=== PATIENT | female | born 1975 ===

== ENCOUNTER 2016-12-03 10:07 | Day surgery (SDC) | payer OTHER ==
[2016-12-03 10:55] VITALS: RESP 18
[2016-12-03 10:57] VITALS: BMI 42.8
[2016-12-03] MEDS ORDERED: Midazolam 2 MG/2 ML VIAL ONE (11:52)
[2016-12-03] MEDS ORDERED: Rocuronium 10 mg/ml (5 ml) ONE (11:52)
[2016-12-03] MEDS ORDERED: Lidocaine 4% (Laryng-O-Jet) Kit MM ONE (11:52)
[2016-12-03] MEDS ORDERED: Succinylcholine 200 mg/10 ml Inj IV ONE (11:52)
[2016-12-03] MEDS ORDERED: Propofol 10 mg/ml Inj (20 ML) ONE (11:52)
[2016-12-03] MEDS ORDERED: ePHEDrine 50 mg/ml Inj ONE (11:56)
[2016-12-03] MEDS ORDERED: Lactated Ringer's 1,000 ML IV ONE ×2 (12:20→14:40)
[2016-12-03] MEDS ORDERED: Dexamethasone 4 mg/1 ml ONE (12:44)
[2016-12-03] MEDS ORDERED: Neostigmine Methylsulfate 3mg/3ml Syringe IV ONE (13:12)
[2016-12-03] MEDS: HYDROmorphone 0.5 mg/0.5 ml ISec IVP PRN ×2 (13:45→14:00)
[2016-12-03] MEDS ORDERED: Lactated Ringer's 1,000 ML IV SCH (13:45)
[2016-12-03] MEDS ORDERED: Oxycodone/Acetaminophen 5/325 mg Tab PO PRN (13:55)
[2016-12-03] MEDS ORDERED: Albuterol 0.083% Inhal Sol (2.5 mg/3 mL) UD ONE (14:54)
[2016-12-03] MEDS ORDERED: Albuterol 0.083% Inhal Sol (2.5 mg/3 mL) UD INH ONE ×3 (15:01→15:45)
[2016-12-03 16:23] VITALS: O2SAT 97
[2016-12-03] MEDS ORDERED: Oxycodone/Acetaminophen 5/325 mg Tab PO ONE (17:00)
[2016-12-03 17:20] VITALS: BP 115/76; PULSE 68; TEMP 97.5
--- NOTE | 2016-12-05 12:38 | OP ---
PROCEDURE DATE: 12/03/2016 PREOPERATIVE DIAGNOSIS: Multiparity. POSTOPERATIVE DIAGNOSIS: Multiparity. SURGEON: Arias Jacobson MD AIRBRUSH PAINTER: Dr. Herrera. ANESTHESIA: General anesthesia. PROCEDURE: Bilateral tubal ligation by cautery and laparoscope. FINDINGS: Tubes, ovaries and uterus within normal limits. ESTIMATED BLOOD LOSS: Minimal. DESCRIPTION OF PROCEDURE: With the patient in the dorsal lithotomy position under general anesthesia , the patient was prepped and draped in the usual sterile manner. A weighted speculum was placed in the posterior vagina. The bladder was drained with a straight cath after which the anterior lip of t he cervix was grasped and the cervix was dilated and the HUMI uterine manipulator put into place. We then moved to the abdomen where the abdomen was tented, and a Veress needle introduced inflating the abdomen to about 4 liters of CO2. Following this, a small incision was made below the umbilicus abo ut 1 cm. A #10 trocar blunt was introduced into the abdominopelvic cavity, and after that was done, the laparoscope with the camera attached was then introduced into the pelvic cavity visualizing the a james findings. A 2nd puncture was made in the midline just 2-3 cm below the pubic bone. A #5 trocar was used. After this was done, the tubes, ovaries and uterus were visualized, and the tubes were ca uterized extensively bilaterally, maintaining hemostasis. After this was done, the liver was visuali zed and found to be grossly normal. The CO2 was then removed from the abdominopelvic cavity. Instru ments were removed from the cavity. The incision was closed with 2-0 Vicryl and Monocryl. Also Derm abond was used. The instruments were then removed from the vagina and from the uterus. The patient tolerated the procedure well and was in satisfactory condition on the way to recovery room. The bloo d loss was minimal. Arias Jacobson MD cc: 22 TT: 12/05/2016 12:38:04 nv
== END 2016-12-03 18:34 | disposition home or self-care (01) ==
LOC: H.OPSURG 10:07
PROVIDERS: ATTEND Specialist
DX: Z64.1 Problems related to multiparity (principal); J45.909 Unspecified asthma, uncomplicated; E66.01 Morbid (severe) obesity due to excess calories

== ENCOUNTER 2017-01-16 09:57 | Emergency (ER) | payer OTHER ==
[2017-01-16 10:02] VITALS: BP 130/74; PULSE 89; RESP 16; TEMP 98.4; O2SAT 98
[2017-01-16 10:03] VITALS: BMI 43.5
--- NOTE | 2017-01-16 10:56 | ED PDOC ---
HPI: Eye Injury/Pain Time Seen by Provider: 01/16/17 10:54 Chief Complaint (Nursing): Eye Problem Chief Complaint (Provider): eye discharge History Per: Patient (41 y/o female awoke with left eye swelling and discharge with "eye shut" this morning. Notes itching in bilateral eyes. Denies any cough/uri/etc. Has ill child at home with uri. Denies any scratchy throat/ nasal discharge but has h/o allergies. No contact lens.) Past Medical History Reviewed: Historical Data, Nursing Documentation, Vital Signs Vital Signs: Last Vital Signs Temp 98.4 F 01/16/17 10:01 Pulse 89 01/16/17 10:01 Resp 16 01/16/17 10:01 BP 130/74 01/16/17 10:01 Pulse Ox 98 01/16/17 10:01 - Medical History PMH: Anxiety, Asthma Denies: Chronic Kidney Disease - Family History Family History: States: No Known Family Hx - Immunization History Hx Tetanus Toxoid Vaccination: No Hx Influenza Vaccination: No Hx Pneumococcal Vaccination: No - Home Medications Home Medications: Ambulatory Orders Medication Instructions Recorded Albuterol Sulfate [Proventil Hfa] 6.7 gm IH PRN PRN 12/03/16 [place]-3 Fatty Acids/Fish Oil [Fish 3 each PO DAILY 12/03/16 Oil 1,000 mg Softgel] oxyCODONE/Acetaminophen [Percocet 1 tab PO Q6 PRN 12/03/16 5/325 mg Tab] Olopatadine 0.1% Opht [Patanol 5 1 drop BOTHEYES BID #1 bottle 01/16/17 Ml] - Allergies Allergies/Adverse Reactions: Allergies Allergy/AdvReac Type Severity Reaction Status Date / Time aspirin Allergy RASH Verified 01/16/17 10:03 ciprofloxacin [From Cipro] Allergy RASH Verified 01/16/17 10:03 ciprofloxacin HCl Allergy RASH Verified 01/16/17 10:03 [From Cipro] erythromycin base Allergy RASH Verified 01/16/17 10:03 fluconazole [From Diflucan] Allergy RASH Verified 01/16/17 10:03 peanut Allergy SWELLING Verified 01/16/17 10:03 Penicillins Allergy RASH Verified 01/16/17 10:03 sulfamethoxazole Allergy RASH Verified 01/16/17 10:03 [From Bactrim] trimethoprim [From Bactrim] Allergy RASH Verified 01/16/17 10:03 robitussin dm Allergy SHORTNESS Uncoded 11/28/15 09:11 OF BREATH seafood Allergy SHORTNESS Uncoded 11/28/15 09:11 OF BREATH Review of Systems ROS Statement: Except As Marked, All Systems Reviewed And Found Negative Eyes: Positive for: Eyelid Inflammation Physical Exam - Reviewed Nursing Documentation Reviewed: Yes Vital Signs Reviewed: Yes - Physical Exam Appears: Positive for: Well, Non-toxic, No Acute Distress Head Exam: Positive for: ATRAUMATIC, NORMAL INSPECTION, NORMOCEPHALIC Skin: Positive for: Normal Color, Warm, DRY Eye Exam: Positive for: EOMI, PERRL, Conjunctival injection (conjunctival injection left eye. No fluorescein uptake noted. PERRL). Negative for: Normal appearance ENT: Positive for: Normal ENT Inspection Neck: Positive for: Normal, Painless ROM Cardiovascular/Chest: Positive for: Regular Rate, Rhythm Respiratory: Positive for: CNT, Normal Breath Sounds Gastrointestinal/Abdominal: Positive for: Normal Exam, Bowel Sounds, Soft Back: Positive for: Normal Inspection Extremity: Positive for: Normal ROM Neurologic/Psych: Positive for: Alert, Oriented - ECG O2 Sat by Pulse Oximetry: 98 - Progress ED Course And Treament: Patient has extensive allergy to antibiotics. Will give patanol for allergic component. Cold compresses and artificial tear. Will f/u with opthalmology for evaluation. Disposition - Clinical Impression Clinical Impression: Conjunctivitis - Patient ED Disposition Is Patient to be Admitted: No - Disposition Referrals: Tiburcio Hughes MD [Staff Provider] - Disposition: Routine/Home Disposition Time: 10:56 Condition: FAIR Prescriptions: Olopatadine 0.1% Opht [Patanol 5 Ml] 1 drop BOTHEYES BID #1 bottle Instructions: Conjunctivitis (ED) Forms: [facility] ED School/Work Excuse
== END 2017-01-16 11:22 | disposition home or self-care (01) ==
LOC: H.ER 09:57
DX: H10.9 Unspecified conjunctivitis (principal); F41.9 Anxiety disorder, unspecified; J45.909 Unspecified asthma, uncomplicated; Z88.0 Allergy status to penicillin

== ENCOUNTER 2017-05-25 12:32 | Emergency (ER) | payer OTHER ==
[2017-05-25 12:32] VITALS: BMI 43.5
[2017-05-25 12:45] VITALS: BP 135/88; PULSE 86; RESP 16; TEMP 99.2; O2SAT 100
--- NOTE | 2017-05-25 13:20 | ED PDOC ---
HPI: General Adult Time Seen by Provider: 05/25/17 13:06 Chief Complaint (Nursing): Dizziness/Lightheaded History Per: Patient History/Exam Limitations: no limitations Onset/Duration Of Symptoms: Days, Intermittent Episodes Current Symptoms Are (Timing): Still Present Additional Complaint(s): 41 year old female presents to ED with complaints of left ear clogged sensation and feeling lightheaded for few days. Patient states she diagnosed with otitis externa 05/17/17 and given Rx for neomycin+polymyxin+hydrocortisone which she has been using. For the past 2 days patient reports feeling unbalanced and left ear clogged. She has many allergies and cannot take OTC decongestants. Denies fever or headache. Past Medical History Reviewed: Historical Data, Nursing Documentation, Vital Signs Vital Signs: Last Vital Signs Temp 99.2 F 05/25/17 12:40 Pulse 86 05/25/17 12:40 Resp 16 05/25/17 12:40 BP 135/88 05/25/17 12:40 Pulse Ox 100 05/25/17 14:14 - Medical History PMH: Anxiety, Asthma - Surgical History Surgical History: - Family History Family History: States: Unknown Family Hx - Social History Drugs: Denies - Immunization History Hx Tetanus Toxoid Vaccination: No Hx Influenza Vaccination: No Hx Pneumococcal Vaccination: No - Home Medications Home Medications: Ambulatory Orders Medication Instructions Recorded Albuterol Sulfate [Proventil Hfa] 6.7 gm IH PRN PRN 12/03/16 [place]-3 Fatty Acids/Fish Oil [Fish 3 each PO DAILY 12/03/16 Oil 1,000 mg Softgel] oxyCODONE/Acetaminophen [Percocet 1 tab PO Q6 PRN 12/03/16 5/325 mg Tab] Olopatadine 0.1% Opht [Patanol 5 1 drop BOTHEYES BID #1 bottle 01/16/17 Ml] Meclizine [Meclizine*] 25 mg PO Q8 PRN #30 tab 05/25/17 - Allergies Allergies/Adverse Reactions: Allergies Allergy/AdvReac Type Severity Reaction Status Date / Time aspirin Allergy RASH Verified 05/25/17 12:40 ciprofloxacin [From Cipro] Allergy RASH Verified 05/25/17 12:40 ciprofloxacin HCl Allergy RASH Verified 05/25/17 12:40 [From Cipro] erythromycin base Allergy RASH Verified 05/25/17 12:40 fluconazole [From Diflucan] Allergy RASH Verified 05/25/17 12:40 peanut Allergy SWELLING Verified 05/25/17 12:40 Penicillins Allergy RASH Verified 05/25/17 12:40 sulfamethoxazole Allergy RASH Verified 05/25/17 12:40 [From Bactrim] trimethoprim [From Bactrim] Allergy RASH Verified 05/25/17 12:40 robitussin dm Allergy SHORTNESS Uncoded 05/25/17 12:40 OF BREATH seafood Allergy SHORTNESS Uncoded 05/25/17 12:40 OF BREATH Review of Systems Constitutional: Negative for: Fever, Weakness Eyes: Negative for: Vision Change ENT: Positive for: Ear Pain. Negative for: Throat Pain Cardiovascular: Negative for: Chest Pain, Palpitations Respiratory: Negative for: Cough, Shortness of Breath Gastrointestinal: Negative for: Abdominal Pain Skin: Negative for: Rash Neurological: Positive for: Dizziness. Negative for: Weakness, Numbness, Headache Physical Exam - Reviewed Nursing Documentation Reviewed: Yes Vital Signs Reviewed: Yes - Physical Exam Appears: Positive for: Non-toxic, No Acute Distress Head Exam: Positive for: ATRAUMATIC, NORMAL INSPECTION, NORMOCEPHALIC Skin: Positive for: Warm, Dry. Negative for: Diaphoresis, Pallor, Rash Eye Exam: Positive for: Normal appearance, EOMI, PERRL ENT: Positive for: Pharynx Is (pink), Hearing Is (normal), Other (left ear with exudates, no canal edema, no erythema, TM intact) Neck: Positive for: Normal, Painless ROM Cardiovascular/Chest: Positive for: Regular Rate, Rhythm, Chest Non Tender. Negative for: Murmur Respiratory: Positive for: Normal Breath Sounds. Negative for: Wheezing, Respiratory Distress Extremity: Positive for: Normal ROM. Negative for: Tenderness, Deformity, Swelling Neurologic/Psych: Positive for: Alert, spring inspector II-XII (intact), Oriented, Mood/ Affect (normal), Gait (steady). Negative for: Facial Droop - ECG O2 Sat by Pulse Oximetry: 100 Medical Decision Making Medical Decision Making: Patient c.o lightheaded and ear fullness. Exam shows left ear with few exudates. No TM erythema. Patient has multiple allergies. Will give Meclizine for dizziness and antihistamine effect. 1410 Patient reevaluated and reports feeling better, no longer feeling dizzy. She feels comfortable going home. recommend follow up with ENT. Disposition - Clinical Impression Clinical Impression: Dizziness, Otitis externa - Patient ED Disposition Is Patient to be Admitted: No Counseled Patient/Family Regarding: Diagnosis, Need For Followup, Rx Given - Disposition Referrals: Lalit Bergeron MD [Staff Provider] - Disposition: Routine/Home Disposition Time: 14:12 Condition: STABLE Additional Instructions: Your prescription was sent to [facility]. Take Meclizine every 8 hours as needed for dizziness. Continue with ear drops and follow up with ENT for further evaluation. Prescriptions: Meclizine [Meclizine*] 25 mg PO Q8 PRN #30 tab PRN Reason: Dizziness Instructions: Vertigo (ED) Forms: [facility] (Swazi) - POA Present On Arrival: None
== END 2017-05-25 14:24 | disposition home or self-care (01) ==
LOC: H.ER 12:32
DX: R42 Dizziness and giddiness (principal); F41.9 Anxiety disorder, unspecified; Z88.0 Allergy status to penicillin

== ENCOUNTER 2017-09-13 17:27 | Observation (INO) | payer OTHER ==
[2017-09-13 17:27] VITALS: BMI 43.5
[2017-09-13] MEDS ORDERED: Lactated Ringer's 1,000 ML IV STA (17:42)
[2017-09-13] MEDS ORDERED: Albuterol-Ipratrop 3 mg / 0.5 (3 ml) UD INH STA (17:43)
[2017-09-13] MEDS ORDERED: Dextrose 5%/Lactated Ringer's 1,000 ML IV SCH (17:45)
[2017-09-13] MEDS ORDERED: Albuterol-Ipratrop 3 mg / 0.5 (3 ml) UD ONE (17:50)
--- NOTE | 2017-09-13 18:12 | ED PDOC ---
Syncope/Near Syncope/Dizziness Time Seen by Provider: 09/13/17 17:30 Chief Complaint (Nursing): Syncope Chief Complaint (Provider): Syncope History Per: Patient, Family (daughter) History/Exam Limitations: no limitations Onset/Duration Of Symptoms: Hrs Additional Complaint(s): Patient is a 41 y/o female with a past medical history of asthma presenting to the emergency department for a syncopal episode just prior to arrival. Per daughter, patient was seen getting up and walking and then falling down and passing out. Reports that the syncopal episode lasted seven seconds and denies observing convulsions, postictal activity, urinary incontinence, or tongue biting. Per patient, notes feeling weakness, body aches, leg cramps, and two episodes of non-bilious, non-bloody vomiting. Further notes that she is also experiencing flu like symptoms ongoing for five days that include rhinorrhea, cough, sore throat, malaise, fatigue, and a fever of 102 degrees at home. She started a leftover pack of azithromycin. Also reports using albuterol and ibuprofen with no significant relief. Denies diarrhea or other complaints. PCP: Dr. Kandis Erickson. Past Medical History Reviewed: Historical Data, Nursing Documentation, Vital Signs - Medical History PMH: Anxiety, Asthma Denies: Chronic Kidney Disease - Surgical History Surgical History: Other surgeries: tubal ligation and ankle surgery - Family History Family History: States: Hypertension - Social History Current smoker - smoking cessation education provided: No Ex-Smoker (has not smoked in the last 12 months): No - Immunization History Hx Tetanus Toxoid Vaccination: No Hx Influenza Vaccination: No Hx Pneumococcal Vaccination: No - Home Medications Home Medications: Ambulatory Orders Medication Instructions Recorded Albuterol Sulfate [Proventil Hfa] 6.7 gm IH PRN PRN 12/03/16 [place]-3 Fatty Acids/Fish Oil [Fish 3 each PO DAILY 12/03/16 Oil 1,000 mg Softgel] oxyCODONE/Acetaminophen [Percocet 1 tab PO Q6 PRN 12/03/16 5/325 mg Tab] Olopatadine 0.1% Opht [Patanol 5 1 drop BOTHEYES BID #1 bottle 01/16/17 Ml] Meclizine [Meclizine*] 25 mg PO Q8 PRN #30 tab 05/25/17 Albuterol 0.083% [Albuterol 3 ml IH Q4H PRN #50 neb 09/13/17 Sulfate 3 Ml] Ondansetron ODT [Zofran ODT] 1 odt PO Q6 PRN #30 odt 09/13/17 predniSONE [Prednisone] 60 mg PO DAILY #4 dose 09/13/17 - Allergies Allergies/Adverse Reactions: Allergies Allergy/AdvReac Type Severity Reaction Status Date / Time aspirin Allergy RASH Verified 05/25/17 12:40 ciprofloxacin [From Cipro] Allergy RASH Verified 05/25/17 12:40 ciprofloxacin HCl Allergy RASH Verified 05/25/17 12:40 [From Cipro] erythromycin base Allergy RASH Verified 05/25/17 12:40 fluconazole [From Diflucan] Allergy RASH Verified 05/25/17 12:40 peanut Allergy SWELLING Verified 05/25/17 12:40 Penicillins Allergy RASH Verified 05/25/17 12:40 sulfamethoxazole Allergy RASH Verified 05/25/17 12:40 [From Bactrim] trimethoprim [From Bactrim] Allergy RASH Verified 05/25/17 12:40 robitussin dm Allergy SHORTNESS Uncoded 05/25/17 12:40 OF BREATH seafood Allergy SHORTNESS Uncoded 05/25/17 12:40 OF BREATH Review of Systems ROS Statement: Except As Marked, All Systems Reviewed And Found Negative Constitutional: Positive for: Fever, Weakness, Malaise, Other (body aches) ENT: Positive for: Nose Discharge (rhinorrhea), Throat Pain Respiratory: Positive for: Cough Gastrointestinal: Positive for: Vomiting (non-bilious, non-bloody) Musculoskeletal: Positive for: Other (leg cramps) Neurological: Positive for: Other (syncope) Physical Exam - Reviewed Nursing Documentation Reviewed: Yes Vital Signs Reviewed: Yes - Physical Exam Appears: Positive for: In Acute Distress (tired and ill appearing) Skin: Positive for: Warm, Dry Eye Exam: Positive for: EOMI, PERRL ENT: Positive for: Pharynx Is (dry mucus membranes), Nasal Congestion. Negative for: Pharyngeal Erythema, Tonsillar Exudate, Tonsillar Swelling Neck: Positive for: Painless ROM, Supple Cardiovascular/Chest: Positive for: Regular Rate, Rhythm, Chest Non Tender. Negative for: Murmur Respiratory: Positive for: Decreased Breath Sounds, Respiratory Distress Gastrointestinal/Abdominal: Positive for: Soft. Negative for: Tenderness Back: Positive for: Normal Inspection. Negative for: Decreased ROM Extremity: Positive for: Normal ROM. Negative for: Deformity Lymphatic: Negative for: Adenopathy Neurologic/Psych: Positive for: Alert, research nurse II-XII (intact), Oriented (x3). Negative for: Motor/Sensory Deficits - Laboratory Results Result Diagrams: 09/13/17 18:16 09/13/17 18:16 - ECG ECG: Positive for: Interpreted By Me ECG Rhythm: Positive for: Normal QRS, Normal ST Segment, Sinus Rhythm (87) - Radiology X-Ray: Interpreted by Ne X-Ray Interpretation: No Acute Disease Medical Decision Making Medical Decision Making: Time: 17:41 Initial Impression: syncope and flu-like symptoms Differential diagnoses include but are not limited to pneumonia, influenza, dehydration, electrolyte abnormality, arrhythmia, and sepsis Initial Plan: EKG ED Urine Dipstick ED Urine Chest XR Acetaminophen 975 mg PO Albuterol 9 mL INH Dextrose 1 L IV Lactated Ringers 1 L IV MethylPrednisolone 125 mg IVP Blood Culture Kiss Mixer IV Insertion Glucose, Blood, POC assessment Peak flow assessment before and after treatment Reevaluation 1999 Patient is feeling slightly better. Reexamination pt clinically continues to appear somewhat ill. Labs demonstrate leukopenia consistent with viral illness. Udip demonstrates ketones. Pt to be hospitalized for syncope, dehydration, and viral illness. Scribe Attestation: Documented by Hali Hunter, acting as a scribe for Tiffany Ch MD. Provider Scribe Attestation: All medical record entries made by the Scribe were at my direction and personally dictated by me. I have reviewed the chart and agree that the record accurately reflects my personal performance of the history, physical exam, medical decision making, and the department course for this patient. I have also personally directed, reviewed, and agree with the discharge instructions and disposition. Disposition - Clinical Impression Clinical Impression: Influenza-like illness, Syncope, Dehydration Discussed With DrMarce: Lisa Toro Counseled Patient/Family Regarding: Studies Performed, Diagnosis - Disposition Disposition Time: 20:00 Condition: FAIR Prescriptions: Albuterol 0.083% [Albuterol Sulfate 3 Ml] 3 ml IH Q4H PRN #50 neb PRN Reason: ASTHMA Ondansetron ODT [Zofran ODT] 1 odt PO Q6 PRN #30 odt PRN Reason: Nausea/Vomiting predniSONE [Prednisone] 60 mg PO DAILY #4 dose - Pt Status Changed To: Hospital Disposition Of: Observation - POA Present On Arrival: Falls Or Trauma
[2017-09-13 18:25] LABS: BASO % 1.3 % (0.0-2.0); EOS # 0.2 K/uL (0.0-0.7); EOS % 4.4 % (0.0-4.0); HEMATOCRIT 44.8 % (34.0-47.0); LYMPH # 1.6 K/uL (1.0-4.3); LYMPH % 42.6 % (20.0-40.0); MEAN CELL VOLUME 92.7 fl (81.0-99.0); MEAN CORPUSCULAR HEMOGLOBIN 30.7 pg (27.0-31.0); MEAN CORPUSCULAR HGB CONC 33.1 g/dL (33.0-37.0); MEAN PLATELET VOLUME 9.7 fl (7.2-11.7); MONO # 0.5 K/uL (0.0-0.8); NEUT # 1.4 K/uL (1.8-7.0); NEUT % 37.7 % (50.0-75.0); NRBC % 0.2 % (0.0-0.0); RED CELL DISTRIBUTION WIDTH 13.3 % (11.5-14.5); WHITE BLOOD COUNT 3.8 K/uL (4.8-10.8)
[2017-09-13 18:34] LABS: VENOUS BLOOD GAS BASE EXCESS 2.9 mmol/L (0.0-2.0); VENOUS BLOOD GAS PCO2 43 mmHg (40-60); VENOUS BLOOD PH 7.42 (7.32-7.43)
[2017-09-13 18:40] LABS: ALKALINE PHOSPHATASE 86 U/L (38-126); ALT/SGPT 110 U/L (9-52); AST/SGOT 85 U/L (14-36); BILIRUBIN,TOTAL 0.6 mg/dl (0.2-1.3); BLOOD UREA NITROGEN 13 mg/dl (7-17); CALCIUM 8.6 mg/dL (8.4-10.2); CARBON DIOXIDE 27 mmol/L (22-30); CHLORIDE 103 mmol/L (98-107); GFR AFRICAN-AMERICAN > 60; GLUCOSE,RANDOM 91 mg/dL (65-105); MAGNESIUM 1.8 MG/DL (1.6-2.3); PHOSPHOROUS 3.2 mg/dl (2.5-4.5); POTASSIUM 4.4 MMOL/L (3.6-5.0); SODIUM 137 mmol/l (132-148); TOTAL PROTEIN 7.7 G/DL (6.3-8.2)
--- NOTE | 2017-09-13 21:46 | CP.PCM.HP ---
History of Present Illness - History of Present Illness History of Present Illness: 41 yr old F presents to ED with complaint of dizziness s/p syncopal episode. PMHx includes Mild Persistent Asthma, Vertigo, Anxiety and chronic left knee pain. Patient reports her syncopal episode occurred when she was getting up from kneeling next to the toilet after 2 episodes of non-bilious, non-bloody vomiting. She had just eaten some soup and vomited shortly after. The syncopal episode was witnessed by her daughter who reports it lasted less than 10 seconds , there was no head trauma, no head/limb jerking, no postictal state or other symptoms, no urine or fecal incontinence. Patient reports she has had nasal congestion, dry cough, body aches, intermittent b/l calf cramps and epigastric burning with each cough for about 1 week. She had a fever of 102F on tuesday and tuesday which resolved with Motrin. There are many sick contacts at work, no sick contacts at home. Since Tuesday she has also used her Albuterol inhaler daily 2-4 times a day and took a Z-pack which she had at home. She also took some Claritin and she felt the medications helped. She came in because she felt dizzy after the syncopal episode. Denies SOB, weakness, chest pain, visual changes, numbness or tingling of extremities. PMD: Dr. Erickson LMP: 09/01/17 (regular every month) PMHx: Mild Persistent Asthma, Vertigo, Anxiety and chronic left knee pain SurgHx: x 1 with bilateral tubal ligation, DNC 08/2012, Ligament repair right ankle 2005 FMHx: mother has HTN and hx of endocarditis, maternal grandfather had DM and colon cancer, father medical hx unknown SocialHx: denies smoking or drugs, reports Etoh socially Medications: Proventil HFA 6.7gm INH PRN for SOB, Albuterol Sulfate 2.5mg/3mL 0.083% nebulized PRN TID for SOB, Meclizine 25mg PO Q8 PRN vertigo (no refills left) Allergies: ASA (rash), Ciprofloxacin (rash), Erythromycin (rash), Fluconazole ( rash), Peanuts (swelling), Penicillins (rash), Bactrim (rash), Robitussin (SOB) , Seafood (SOB) ED course: Vitals on arrival: BP 122/75 mmHg, Pulse 84, Temp 98.4F, Resp 18, O2 sat 99 on room air EKG: normal sinus rhythm, no ST-T changes CXR: no active disease Urine BHcg negative POC glucose 140 mg/dL CBC with diff: WBC 3.8, Neutrophils 37.7 %, Lymphocytes 42.6%, Monophils 14 %, Eosinophils 4.4 % VBG: pH 7.42, pO2 44, pCO2 43, HCO3 26.7, lactate 0.8 Influenza A/B neg/neg CMP: AST 85, ALT 110, rest wnl Blood culture and UA sent Cr phosphokinase 44 ED tx: Tylenol 975mg PO once, Duoneb 9mL once, Methylprednisolone 125 mg IVP once, Ondansetron 4mg IVP once, LR's 1000 mls/hr once Present on Admission - Present on Admission Any Indicators Present on Admission: No History of DVT/PE: No History of Uncontrolled Diabetes: No Urinary Catheter: No Decubitus Ulcer Present: No Review of Systems - Review of Systems All systems: reviewed and no additional remarkable complaints except (except for what is mentioned in HPI) - EENT Eyes: absent: Change in Vision Nose/Mouth/Throat: Nasal Congestion, Sore Throat - Cardiovascular Cardiovascular: Lightheadedness, Syncope (1 episode). absent: Chest Pain, Dyspnea on Exertion, Orthopnea, Palpitations - Respiratory Respiratory: Cough (dry), Pain with Coughing (epigastric burning). absent: Hemoptysis - Gastrointestinal Gastrointestinal: Nausea, Vomiting (2 episodes-nonbilious, nonbloody). absent: Change in Stool Character, Diarrhea, Dysphagia - Genitourinary Genitourinary: absent: Difficulty Urinating, Dysuria, Flank Pain, Hematuria - Reproductive: Female Reproductive:Female: Menses 1-7 Days, Normal Menses - Musculoskeletal Musculoskeletal: Muscle Cramps, Myalgias, Other (chronic left knee pain) - Integumentary Integumentary: absent: Bleeding Lesions, Change in Hair, Changing Lesions, Dry Skin, Rash - Neurological Neurological: Dizziness, Syncope. absent: Abnormal Speech, Numbness, Headaches , Weakness, Other Visual Disturbances - Psychiatric Psychiatric: Anxiety (controlled) Past Patient History - Past Medical History & Family History Past Medical History?: Yes - Past Social History Smoking Status: Never Smoked - CARDIAC Hx Cardiac Disorders: No - PULMONARY Hx Respiratory Disorders: Yes (asthma) - NEUROLOGICAL Hx Neurological Disorder: No - HEENT Hx HEENT Problems: No - RENAL Hx Chronic Kidney Disease: No - ENDOCRINE/METABOLIC Hx Endocrine Disorders: No - HEMATOLOGICAL/ONCOLOGICAL Hx Blood Disorders: No - INTEGUMENTARY Hx Dermatological Problems: Yes Other/Comment: JESUS ARAYAROME - MUSCULOSKELETAL/RHEUMATOLOGICAL Hx Musculoskeletal Disorders: Yes (R ankle surgery) - GASTROINTESTINAL Hx Gastrointestinal Disorders: No - GENITOURINARY/GYNECOLOGICAL Hx Genitourinary Disorders: No - PSYCHIATRIC Hx Anxiety: Yes - SURGICAL HISTORY Hx Surgeries: Yes Hx Section: Yes Hx Tubal Ligation: Yes Other/Comment: D&C;REPAIR OF RIGHT ANKLE LIGAMENT;-1;NATURAL DELIVERY - 2. Tubal ligation - ANESTHESIA Hx Anesthesia: Yes Hx Anesthesia Reactions: No Hx Malignant Hyperthermia: No Meds Allergies/Adverse Reactions: Allergies Allergy/AdvReac Type Severity Reaction Status Date / Time aspirin Allergy RASH Verified 05/25/17 12:40 ciprofloxacin [From Cipro] Allergy RASH Verified 05/25/17 12:40 ciprofloxacin HCl Allergy RASH Verified 05/25/17 12:40 [From Cipro] erythromycin base Allergy RASH Verified 05/25/17 12:40 fluconazole [From Diflucan] Allergy RASH Verified 05/25/17 12:40 peanut Allergy SWELLING Verified 05/25/17 12:40 Penicillins Allergy RASH Verified 05/25/17 12:40 sulfamethoxazole Allergy RASH Verified 05/25/17 12:40 [From Bactrim] trimethoprim [From Bactrim] Allergy RASH Verified 05/25/17 12:40 robitussin dm Allergy SHORTNESS Uncoded 05/25/17 12:40 OF BREATH seafood Allergy SHORTNESS Uncoded 05/25/17 12:40 OF BREATH Physical Exam - Constitutional Appears: No Acute Distress - Head Exam Head Exam: ATRAUMATIC, NORMOCEPHALIC - Eye Exam Eye Exam: EOMI, PERRL - ENT Exam ENT Exam: Mucous Membranes Moist - Neck Exam Neck exam: Positive for: Full Rom. Negative for: Lymphadenopathy - Respiratory Exam Respiratory Exam: Decreased Breath Sounds (in bilateral lower lobes), Clear to Auscultation Bilateral, Wheezes (mild expiratory), NORMAL BREATHING PATTERN. absent: Rales, Rhonchi, Respiratory Distress - Cardiovascular Exam Cardiovascular Exam: REGULAR RHYTHM, +S1, +S2 - GI/Abdominal Exam GI & Abdominal Exam: Normal Bowel Sounds, Soft (obese). absent: Guarding, Mass - Extremities Exam Extremities exam: Positive for: pedal pulses present. Negative for: calf tenderness, pedal edema - Back Exam Back exam: absent: CVA tenderness (L), CVA tenderness (R) - Neurological Exam Neurological exam: Alert, CN II-XII Intact, Oriented x3 - Psychiatric Exam Psychiatric exam: Normal Affect, Normal Mood - Skin Skin Exam: Dry, Intact, Normal Color, Warm Results - Vital Signs Recent Vital Signs: Last Vital Signs Temp 98.5 F 09/13/17 21:35 Pulse 85 09/13/17 21:35 Resp 14 09/13/17 21:35 BP 118/78 09/13/17 21:35 Pulse Ox 96 09/13/17 21:35 - Labs Result Diagrams: 09/13/17 18:16 09/13/17 18:16 Labs: Laboratory Results - last 24 hr 09/13/17 09/13/17 09/13/17 17:56 18:15 18:16 WBC 3.8 L D RBC 4.83 Hgb 14.8 Hct 44.8 MCV 92.7 MCH 30.7 MCHC 33.1 RDW 13.3 Plt Count 218 MPV 9.7 Neut % (Auto) 37.7 L Lymph % (Auto) 42.6 H Tate % (Auto) 14.0 H Eos % (Auto) 4.4 H Baso % (Auto) 1.3 Neut # 1.4 L Lymph # 1.6 Tate # 0.5 Eos # 0.2 Baso # 0.0 pO2 44 VBG pH 7.42 VBG pCO2 43 VBG HCO3 26.7 VBG Total CO2 29.2 H VBG O2 Sat (Calc) 85.3 H VBG Base Excess 2.9 H VBG Potassium 4.2 Sodium 136.0 Chloride 107.0 Glucose 98 Lactate 0.8 FiO2 21.0 Potassium Carbon Dioxide Anion Gap BUN Creatinine Est GFR ( Amer) Est GFR (Non-Af Amer) POC Glucose (mg/dL) 91 Random Glucose Calcium Phosphorus Magnesium Total Bilirubin AST ALT Alkaline Phosphatase Total Creatine Kinase Total Protein Albumin Globulin Albumin/Globulin Ratio Venous Blood Potassium 4.2 Influenza Typ A,B (EIA) 09/13/17 09/13/17 18:16 18:16 WBC RBC Hgb Hct MCV MCH MCHC RDW Plt Count MPV Neut % (Auto) Lymph % (Auto) Tate % (Auto) Eos % (Auto) Baso % (Auto) Neut # Lymph # Tate # Eos # Baso # pO2 VBG pH VBG pCO2 VBG HCO3 VBG Total CO2 VBG O2 Sat (Calc) VBG Base Excess VBG Potassium Sodium 137 Chloride 103 Glucose Lactate FiO2 Potassium 4.4 Carbon Dioxide 27 Anion Gap 11 BUN 13 Creatinine 0.6 L Est GFR ( Amer) > 60 Est GFR (Non-Af Amer) > 60 POC Glucose (mg/dL) Random Glucose 91 Calcium 8.6 Phosphorus 3.2 Magnesium 1.8 Total Bilirubin 0.6 AST 85 H ALT 110 H D Alkaline Phosphatase 86 Total Creatine Kinase 44 Total Protein 7.7 Albumin 4.0 Globulin 3.8 Albumin/Globulin Ratio 1.0 Venous Blood Potassium Influenza Typ A,B (EIA) Negative for flu a/b Assessment & Plan - Assessment and Plan (Free Text) Assessment: 41 yr old F admitted for syncope, dehydration and viral illness. PMHx includes Mild Persistent Asthma, Vertigo, Anxiety and chronic left knee pain. 1. 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 Mild Persistent Asthma -controlled, O2 sat 95-100% on room air -Albuterol 2.5mg/3ML Q4 PRN SOB -2L supplemental O2 via nasal cannula PRN for O2 sat < 92% -ED tx: Duoneb 9mL once, Methylprednisolone 125 mg IVP once 3. Upper respiratory Infection -stable, afebrile, normal vitals -IV fluids -NS at 100 mls/hr, NPO -Tessalon Perles 200mg PO TID PRN for cough 4. Elevated LFT's -CMP: AST 85, ALT 110 -no GI/abdominal discomfort -f/u as outpatient 5. DVT prophylaxis -SCD's -Lovenox 40mg SC daily - Date & Time Date: 09/13/17 Time: 21:00
[2017-09-13] MEDS: Sodium Chloride 0.9% 1,000 ML IV SCH (23:05)
[2017-09-13] MEDS: Albuterol 0.083% Inhal Sol (2.5 mg/3 mL) UD INH PRN (23:35)
[2017-09-14 07:51] LABS: RBC URINE 1 /hpf (0-3); URINE BILIRUBIN NEGATIVE (NEGATIVE); URINE BLOOD NEGATIVE (NEGATIVE); URINE COLOR YELLOW (YELLOW); URINE GLUCOSE (UA) NEG (Normal); URINE KETONE TRACE mg/dL (NEGATIVE); URINE LEUKOCYTE ESTERASE NEG Leu/uL (Negative); URINE PROTEIN NEGATIVE (NEGATIVE); URINE UROBILINOGEN 0.2-1.0 mg/dL (0.2-1.0); WBC URINE 1 /hpf (0-5)
[2017-09-14] MEDS: Albuterol 0.083% Inhal Sol (2.5 mg/3 mL) UD INH PRN (07:53)
[2017-09-14 08:14] VITALS: BP 110/75; RESP 20; TEMP 98.1; O2SAT 94
--- NOTE | 2017-09-14 08:21 | CARD ---
APPROVED REPORT EKG Measurement Heart [id number] <Conclusion> Normal sinus rhythm Normal ECG
[2017-09-14] MEDS ORDERED: Enoxaparin 40 mg Syringe SC SCH (09:00)
[2017-09-14] MEDS: Sodium Chloride 0.9% 1,000 ML IV SCH (09:19)
--- NOTE | 2017-09-14 09:37 | RAD ---
HISTORY: cough fever COMPARISON: 11/25/2011 chest x-ray -report not now available to me FINDINGS: LUNGS: No active pulmonary disease. PLEURA: No significant pleural effusion identified, no pneumothorax apparent. CARDIOVASCULAR: Normal. OSSEOUS STRUCTURES: No significant abnormalities. VISUALIZED UPPER ABDOMEN: Normal. OTHER FINDINGS: None. IMPRESSION: No active disease. No interval pathology noted
--- NOTE | 2017-09-14 11:23 | CP.PCM.DIS ---
<Kavita Johnsona - Last Filed: 09/14/17 11:45> Provider - Provider Date of Admission: 09/13/17 20:38 Attending physician: Cortney Farmer MD Primary care physician: Dr. Erickson Time Spent in preparation of Discharge (in minutes): 30 Diagnosis - Discharge Diagnosis (1) Dehydration Status: Resolved Hospital Course - Lab Results Lab Results: Most Recent Lab Values WBC 3.8 K/uL (4.8-10.8) L D 09/13/17 18:16 RBC 4.83 Mil/uL (3.80-5.20) 09/13/17 18:16 Hgb 14.8 g/dL (12.0-16.0) 09/13/17 18:16 Hct 44.8 % (34.0-47.0) 09/13/17 18:16 MCV 92.7 fl (81.0-99.0) 09/13/17 18:16 MCH 30.7 pg (27.0-31.0) 09/13/17 18:16 MCHC 33.1 g/dL (33.0-37.0) 09/13/17 18:16 RDW 13.3 % (11.5-14.5) 09/13/17 18:16 Plt Count 218 K/uL (130-400) 09/13/17 18:16 MPV 9.7 fl (7.2-11.7) 09/13/17 18:16 Neut % (Auto) 37.7 % (50.0-75.0) L 09/13/17 18:16 Lymph % (Auto) 42.6 % (20.0-40.0) H 09/13/17 18:16 Berrien % (Auto) 14.0 % (0.0-10.0) H 09/13/17 18:16 Eos % (Auto) 4.4 % (0.0-4.0) H 09/13/17 18:16 Baso % (Auto) 1.3 % (0.0-2.0) 09/13/17 18:16 Neut # 1.4 K/uL (1.8-7.0) L 09/13/17 18:16 Lymph # 1.6 K/uL (1.0-4.3) 09/13/17 18:16 Berrien # 0.5 K/uL (0.0-0.8) 09/13/17 18:16 Eos # 0.2 K/uL (0.0-0.7) 09/13/17 18:16 Baso # 0.0 K/uL (0.0-0.2) 09/13/17 18:16 pO2 44 mm/Hg (30-55) 09/13/17 18:15 VBG pH 7.42 (7.32-7.43) 09/13/17 18:15 VBG pCO2 43 mmHg (40-60) 09/13/17 18:15 VBG HCO3 26.7 mmol/L 09/13/17 18:15 VBG Total CO2 29.2 mmol/L (22-28) H 09/13/17 18:15 VBG O2 Sat (Calc) 85.3 % (40-65) H 09/13/17 18:15 VBG Base Excess 2.9 mmol/L (0.0-2.0) H 09/13/17 18:15 VBG Potassium 4.2 mmol/L (3.6-5.2) 09/13/17 18:15 Sodium 136.0 mmol/L (132-148) 09/13/17 18:15 Chloride 107.0 mmol/L (98-107) 09/13/17 18:15 Glucose 98 mg/dL (65-105) 09/13/17 18:15 Lactate 0.8 mmol/L (0.7-2.1) 09/13/17 18:15 FiO2 21.0 % 09/13/17 18:15 Sodium 137 mmol/l (132-148) 09/13/17 18:16 Potassium 4.4 MMOL/L (3.6-5.0) 09/13/17 18:16 Chloride 103 mmol/L (98-107) 09/13/17 18:16 Carbon Dioxide 27 mmol/L (22-30) 09/13/17 18:16 Anion Gap 11 (10-20) 09/13/17 18:16 BUN 13 mg/dl (7-17) 09/13/17 18:16 Creatinine 0.6 mg/dl (0.7-1.2) L 09/13/17 18:16 Est GFR ( Amer) > 60 09/13/17 18:16 Est GFR (Non-Af Amer) > 60 09/13/17 18:16 POC Glucose (mg/dL) 140 mg/dL (65-110) H 09/13/17 21:49 Random Glucose 91 mg/dL (65-105) 09/13/17 18:16 Calcium 8.6 mg/dL (8.4-10.2) 09/13/17 18:16 Phosphorus 3.2 mg/dl (2.5-4.5) 09/13/17 18:16 Magnesium 1.8 MG/DL (1.6-2.3) 09/13/17 18:16 Total Bilirubin 0.6 mg/dl (0.2-1.3) 09/13/17 18:16 AST 85 U/L (14-36) H 09/13/17 18:16 ALT 110 U/L (9-52) H D 09/13/17 18:16 Alkaline Phosphatase 86 U/L (38-126) 09/13/17 18:16 Total Creatine Kinase 44 U/L (30-135) 09/13/17 18:16 Total Protein 7.7 G/DL (6.3-8.2) 09/13/17 18:16 Albumin 4.0 g/dL (3.5-5.0) 09/13/17 18:16 Globulin 3.8 gm/dL (2.2-3.9) 09/13/17 18:16 Albumin/Globulin Ratio 1.0 (1.0-2.1) 09/13/17 18:16 Venous Blood Potassium 4.2 mmol/L (3.6-5.2) 09/13/17 18:15 Urine Color Yellow (YELLOW) 09/14/17 07:39 Urine Clarity Slighty-cloudy (Clear) 09/14/17 07:39 Urine pH 6.0 (5.0-8.0) 09/14/17 07:39 Ur Specific Cranks 1.015 (1.003-1.030) 09/14/17 07:39 Urine Protein Negative mg/dL (NEGATIVE) 09/14/17 07:39 Urine Glucose (UA) Neg mg/dL (Normal) 09/14/17 07:39 Urine Ketones Trace mg/dL (NEGATIVE) 09/14/17 07:39 Urine Blood Negative (NEGATIVE) 09/14/17 07:39 Urine Nitrate Negative (NEGATIVE) 09/14/17 07:39 Urine Bilirubin Negative (NEGATIVE) 09/14/17 07:39 Urine Urobilinogen 0.2-1.0 mg/dL (0.2-1.0) 09/14/17 07:39 Ur Leukocyte Esterase Neg Betsey/uL (Negative) 09/14/17 07:39 Urine RBC (Auto) 1 /hpf (0-3) 09/14/17 07:39 Urine Microscopic WBC 1 /hpf (0-5) 09/14/17 07:39 Ur Squamous Epith Cells 1 /hpf (0-5) 09/14/17 07:39 Influenza Typ A,B (EIA) Negative for flu a/b (NEGATIVE) 09/13/17 18:16 - Hospital Course Hospital Course: 41 yo F with pmh mild persistent asthma, vertigo, anxiety, chronic left knee pain, admitted for vomiting, syncope, flu-like symptoms and dehydration. CXR showed no active disease, flu swab was negative, EKG showed normal sinus rhythm with no ST changes. She received tylenol 975mg PO once, methylprednisone 125 IVP , zofran 4mg IVP, and 1L bolus hydration. Overnight, she tolerated liquids and had no further episodes of vomiting, and overall stated she felt much better with improvement of symptoms. Pt is being discharged with the following prescriptions: Meclizine 12.5 mg PO daily for 15 days. Proventil HFA 6.7gm, INH, as needed, for 30 days She has a follow up appt with PMD Dr. Erickson on September 27. Discharge Exam - Head Exam Head Exam: ATRAUMATIC, NORMOCEPHALIC - Eye Exam Eye Exam: EOMI, Normal appearance - ENT Exam ENT Exam: Mucous Membranes Moist - Neck Exam Neck exam: Full Rom, Normal Inspection - Respiratory Exam Respiratory Exam: Clear to PA & Lateral, NORMAL BREATHING PATTERN. absent: Respiratory Distress - Cardiovascular Exam Cardiovascular Exam: REGULAR RHYTHM, +S1, +S2 - GI/Abdominal Exam GI & Abdominal Exam: Normal Bowel Sounds, Soft, Unremarkable. absent: Tenderness - Extremities Exam Extremities exam: normal capillary refill, normal inspection, pedal pulses present - Back Exam Back exam: NORMAL INSPECTION - Neurological Exam Neurological exam: Alert, Oriented x3 - Skin Skin Exam: Dry, Warm Discharge Plan - Discharge Medications Prescriptions: Albuterol Sulfate [Proventil Hfa] 6.7 gm IH PRN PRN 30 Days hfa.aer.ad PRN Reason: Shortness Of Breath Meclizine [Antivert] 12.5 mg PO DAILY 15 Days tab - Follow Up Plan Condition: FAIR Disposition: HOME/ ROUTINE Patient education suggested?: Yes Instructions: Viral Syndrome (DC) Additional Instructions: Please take medication as prescribed: Meclizine 12.5 mg PO daily for 15 days. Proventil HFA 6.7gm, INH, as needed, for 30 days Please follow up with your PMD Dr. Erickson in the [facility] on , at 10 am. Return to ED if you feel shortness of breath, chest pain, or worsening symptoms. <Bessy Maher - Last Filed: 09/16/17 07:35> Provider - Provider Date of Admission: 09/13/17 20:38 Attending physician: Cortney Farmer MD Primary care physician: ATTENDING NOTE ATTESTATION Patient seen and examined. Case discussed with resident. Agree with findings and plan. Hospital Course - Lab Results Lab Results: Micro Results 09/13/17 18:00 Blood Blood Culture - Preliminary NO GROWTH AFTER 48 HOURS 09/13/17 18:10 Blood Blood Culture - Preliminary NO GROWTH AFTER 48 HOURS Most Recent Lab Values WBC 3.8 K/uL (4.8-10.8) L D 09/13/17 18:16 RBC 4.83 Mil/uL (3.80-5.20) 09/13/17 18:16 Hgb 14.8 g/dL (12.0-16.0) 09/13/17 18:16 Hct 44.8 % (34.0-47.0) 09/13/17 18:16 MCV 92.7 fl (81.0-99.0) 09/13/17 18:16 MCH 30.7 pg (27.0-31.0) 09/13/17 18:16 MCHC 33.1 g/dL (33.0-37.0) 09/13/17 18:16 RDW 13.3 % (11.5-14.5) 09/13/17 18:16 Plt Count 218 K/uL (130-400) 09/13/17 18:16 MPV 9.7 fl (7.2-11.7) 09/13/17 18:16 Neut % (Auto) 37.7 % (50.0-75.0) L 09/13/17 18:16 Lymph % (Auto) 42.6 % (20.0-40.0) H 09/13/17 18:16 Berrien % (Auto) 14.0 % (0.0-10.0) H 09/13/17 18:16 Eos % (Auto) 4.4 % (0.0-4.0) H 09/13/17 18:16 Baso % (Auto) 1.3 % (0.0-2.0) 09/13/17 18:16 Neut # 1.4 K/uL (1.8-7.0) L 09/13/17 18:16 Lymph # 1.6 K/uL (1.0-4.3) 09/13/17 18:16 Berrien # 0.5 K/uL (0.0-0.8) 09/13/17 18:16 Eos # 0.2 K/uL (0.0-0.7) 09/13/17 18:16 Baso # 0.0 K/uL (0.0-0.2) 09/13/17 18:16 pO2 44 mm/Hg (30-55) 09/13/17 18:15 VBG pH 7.42 (7.32-7.43) 09/13/17 18:15 VBG pCO2 43 mmHg (40-60) 09/13/17 18:15 VBG HCO3 26.7 mmol/L 09/13/17 18:15 VBG Total CO2 29.2 mmol/L (22-28) H 09/13/17 18:15 VBG O2 Sat (Calc) 85.3 % (40-65) H 09/13/17 18:15 VBG Base Excess 2.9 mmol/L (0.0-2.0) H 09/13/17 18:15 VBG Potassium 4.2 mmol/L (3.6-5.2) 09/13/17 18:15 Sodium 136.0 mmol/L (132-148) 09/13/17 18:15 Chloride 107.0 mmol/L (98-107) 09/13/17 18:15 Glucose 98 mg/dL (65-105) 09/13/17 18:15 Lactate 0.8 mmol/L (0.7-2.1) 09/13/17 18:15 FiO2 21.0 % 09/13/17 18:15 Sodium 137 mmol/l (132-148) 09/13/17 18:16 Potassium 4.4 MMOL/L (3.6-5.0) 09/13/17 18:16 Chloride 103 mmol/L (98-107) 09/13/17 18:16 Carbon Dioxide 27 mmol/L (22-30) 09/13/17 18:16 Anion Gap 11 (10-20) 09/13/17 18:16 BUN 13 mg/dl (7-17) 09/13/17 18:16 Creatinine 0.6 mg/dl (0.7-1.2) L 09/13/17 18:16 Est GFR ( Amer) > 60 09/13/17 18:16 Est GFR (Non-Af Amer) > 60 09/13/17 18:16 POC Glucose (mg/dL) 140 mg/dL (65-110) H 09/13/17 21:49 Random Glucose 91 mg/dL (65-105) 09/13/17 18:16 Calcium 8.6 mg/dL (8.4-10.2) 09/13/17 18:16 Phosphorus 3.2 mg/dl (2.5-4.5) 09/13/17 18:16 Magnesium 1.8 MG/DL (1.6-2.3) 09/13/17 18:16 Total Bilirubin 0.6 mg/dl (0.2-1.3) 09/13/17 18:16 AST 85 U/L (14-36) H 09/13/17 18:16 ALT 110 U/L (9-52) H D 09/13/17 18:16 Alkaline Phosphatase 86 U/L (38-126) 09/13/17 18:16 Total Creatine Kinase 44 U/L (30-135) 09/13/17 18:16 Total Protein 7.7 G/DL (6.3-8.2) 09/13/17 18:16 Albumin 4.0 g/dL (3.5-5.0) 09/13/17 18:16 Globulin 3.8 gm/dL (2.2-3.9) 09/13/17 18:16 Albumin/Globulin Ratio 1.0 (1.0-2.1) 09/13/17 18:16 Venous Blood Potassium 4.2 mmol/L (3.6-5.2) 09/13/17 18:15 Urine Color Yellow (YELLOW) 09/14/17 07:39 Urine Clarity Slighty-cloudy (Clear) 09/14/17 07:39 Urine pH 6.0 (5.0-8.0) 09/14/17 07:39 Ur Specific Cranks 1.015 (1.003-1.030) 09/14/17 07:39 Urine Protein Negative mg/dL (NEGATIVE) 09/14/17 07:39 Urine Glucose (UA) Neg mg/dL (Normal) 09/14/17 07:39 Urine Ketones Trace mg/dL (NEGATIVE) 09/14/17 07:39 Urine Blood Negative (NEGATIVE) 09/14/17 07:39 Urine Nitrate Negative (NEGATIVE) 09/14/17 07:39 Urine Bilirubin Negative (NEGATIVE) 09/14/17 07:39 Urine Urobilinogen 0.2-1.0 mg/dL (0.2-1.0) 09/14/17 07:39 Ur Leukocyte Esterase Neg Betsey/uL (Negative) 09/14/17 07:39 Urine RBC (Auto) 1 /hpf (0-3) 09/14/17 07:39 Urine Microscopic WBC 1 /hpf (0-5) 09/14/17 07:39 Ur Squamous Epith Cells 1 /hpf (0-5) 09/14/17 07:39 Influenza Typ A,B (EIA) Negative for flu a/b (NEGATIVE) 09/13/17 18:16
[2017-09-14 11:49] VITALS: PULSE 74
== END 2017-09-14 14:56 | disposition home or self-care (01) ==
LOC: H.ER 17:27 → H.ERHOLD 20:38 → H.TEL 21:24
PROVIDERS: ADMIT Family Medicine Geriatric Medicine; ATTEND Family Medicine Geriatric Medicine
DX: E86.0 Dehydration (principal); J06.9 Acute upper respiratory infection, unspecified; I10 Essential (primary) hypertension; J45.30 Mild persistent asthma, uncomplicated; R42 Dizziness and giddiness; F41.9 Anxiety disorder, unspecified
CPT/HCPCS: 71010; 80053; 81003; 81025; 82550; 82803; 82948; 83735; 84100; 85025; 87040; 87804; 93005; 94150; 94640; 96361; 96374; 96375; 99285; G0378; J1650; J2405; J2930; J7040; J7120

== ENCOUNTER 2018-08-03 08:38 | Emergency (ER) | payer OTHER ==
[2018-08-03 08:41] VITALS: BMI 46.0
--- NOTE | 2018-08-03 08:51 | ED PDOC ---
Lower Extremity Pain/Injury Time Seen by Provider: 08/03/18 08:41 Chief Complaint (Nursing): Lower Extremity Problem/Injury History Per: Patient Onset/Duration Of Symptoms: Days (1) Current Symptoms Are (Timing): Still Present Severity: Moderate Additional Complaint(s): Twisted left ankle inversion injury last night. With pain on weight bearing and ambulation. Denies other injury. Past Medical History Vital Signs: Last Vital Signs Temp 98.4 F 08/03/18 08:42 Pulse 79 08/03/18 08:42 Resp 17 08/03/18 08:42 BP 132/71 08/03/18 08:42 Pulse Ox 100 08/03/18 08:42 - Medical History PMH: Anxiety, Asthma Denies: Chronic Kidney Disease Other PMH: Benavides Moisés Syndrome - Surgical History Surgical History: - Family History Family History: States: Unknown Family Hx, Hypertension - Immunization History Hx Tetanus Toxoid Vaccination: No Hx Influenza Vaccination: No Hx Pneumococcal Vaccination: No - Home Medications Home Medications: Ambulatory Orders Medication Instructions Recorded Albuterol Sulfate [Proventil Hfa] 6.7 gm IH PRN PRN 30 Days 09/14/17 hfa.aer.ad Meclizine [Antivert] 12.5 mg PO DAILY 15 Days tab 09/14/17 traMADol [Ultram] 50 mg PO Q8 #10 tab 08/03/18 - Allergies Allergies/Adverse Reactions: Allergies Allergy/AdvReac Type Severity Reaction Status Date / Time aspirin Allergy RASH Verified 08/03/18 08:47 ciprofloxacin [From Cipro] Allergy RASH Verified 08/03/18 08:47 ciprofloxacin HCl Allergy RASH Verified 08/03/18 08:47 [From Cipro] erythromycin base Allergy RASH Verified 08/03/18 08:47 fluconazole [From Diflucan] Allergy RASH Verified 08/03/18 08:47 peanut Allergy SWELLING Verified 08/03/18 08:47 Penicillins Allergy RASH Verified 08/03/18 08:47 sulfamethoxazole Allergy RASH Verified 08/03/18 08:47 [From Bactrim] trimethoprim [From Bactrim] Allergy RASH Verified 08/03/18 08:47 robitussin dm Allergy SHORTNESS Uncoded 05/25/17 12:40 OF BREATH seafood Allergy SHORTNESS Uncoded 05/25/17 12:40 OF BREATH Review of Systems Constitutional: Negative for: Fever Musculoskeletal: Positive for: Other (ankle pain) Neurological: Negative for: Weakness, Numbness Physical Exam - Physical Exam Appears: Positive for: Non-toxic, No Acute Distress Skin: Positive for: Normal Color, Warm, DRY Pulses-Dorsalis Pedis (L): 2+ Pulses-Post. Tibialis (L): 2+ Extremity: Positive for: Other (Left ankle, lateral maleolus, swelling and tenderness and mild ecchymosis. No instability.) Neurologic/Psych: Positive for: Alert, Oriented. Negative for: Motor/Sensory Deficits - ECG O2 Sat by Pulse Oximetry: 100 Disposition - Clinical Impression Clinical Impression: Ankle sprain - Patient ED Disposition Is Patient to be Admitted: No - Disposition Referrals: Cindy Marie DPM [Staff Provider] - Disposition: Routine/Home Disposition Time: 09:13 Condition: FAIR Prescriptions: traMADol [Ultram] 50 mg PO Q8 #10 tab Instructions: Ankle Sprain Forms: [employer] ([place])
[2018-08-03 09:44] VITALS: BP 130/70; PULSE 77; RESP 16; TEMP 98.2; O2SAT 98
--- NOTE | 2018-08-03 10:35 | RAD ---
Date of service: 08/03/2018 PROCEDURE: Left Ankle Radiographs. HISTORY: Trauma COMPARISON: None available. FINDINGS: BONES: Bone alignment and mineralization are normal. There is no acute displaced fracture or bone destruction. JOINTS: Normal. No osteoarthritis. Ankle mortise maintained. Talar dome intact there is a large plantar calcaneal spur. SOFT TISSUES: There is mild lateral soft tissue swelling. OTHER FINDINGS: None. IMPRESSION: No acute fracture or dislocation mild lateral soft tissue swelling. Large plantar calcaneal spur.
--- NOTE | 2018-08-03 10:44 | RAD ---
Date of service: 08/03/2018 PROCEDURE: Left Foot Radiographs. HISTORY: trauma COMPARISON: None. FINDINGS: BONES: Bone alignment and mineralization are normal. There is no acute displaced fracture or bone destruction. There is a large plantar calcaneal spur. JOINTS: Normal. SOFT TISSUES: There is mild dorsal soft tissue swelling. OTHER FINDINGS: None. IMPRESSION: No acute fracture or dislocation.
--- NOTE | 2018-08-03 15:43 | CP.PCM.CON ---
History of Present Illness - History of Present Illness History of Present Illness: Podiatry consult note for Dr. rabago, 42 yo female with no pmhx Twisted left ankle inversion injury last night. Admits to pain on weight bearing and ambulation. Denies other injury. Denies any other pedal complains. Denies taking any pain medications. Denies icing it or elevation. Denies f/n/v/sob. social history: denies smoking or drinking alcohol surgical history: denies pmhx: denies medications: none Past Patient History - Past Medical History & Family History Past Medical History?: Yes - Past Social History Smoking Status: Former Smoker - CARDIAC Hx Cardiac Disorders: No - PULMONARY Hx Asthma: Yes - NEUROLOGICAL Hx Neurological Disorder: No - HEENT Hx HEENT Problems: No - RENAL Hx Chronic Kidney Disease: No - ENDOCRINE/METABOLIC Hx Endocrine Disorders: No - HEMATOLOGICAL/ONCOLOGICAL Hx Blood Disorders: No - INTEGUMENTARY Hx Dermatological Problems: Yes Other/Comment: JESUS ARAYAROME - MUSCULOSKELETAL/RHEUMATOLOGICAL Hx Falls: Yes - GASTROINTESTINAL Hx Gastrointestinal Disorders: No - GENITOURINARY/GYNECOLOGICAL Hx Genitourinary Disorders: No - PSYCHIATRIC Hx Anxiety: Yes - SURGICAL HISTORY Hx Surgeries: Yes Hx Section: Yes Hx Tubal Ligation: Yes Other/Comment: D&C;REPAIR OF RIGHT ANKLE LIGAMENT;-1;NATURAL DELIVERY - 2. Tubal ligation - ANESTHESIA Hx Anesthesia: Yes Hx Anesthesia Reactions: No Hx Malignant Hyperthermia: No Meds Home Medications: Home Medication List Medication Instructions Recorded Confirmed Type traMADol [Ultram] 50 mg PO Q8 #10 tab 08/03/18 Rx Allergies/Adverse Reactions: Allergies Allergy/AdvReac Type Severity Reaction Status Date / Time aspirin Allergy RASH Verified 08/03/18 08:47 ciprofloxacin [From Cipro] Allergy RASH Verified 08/03/18 08:47 ciprofloxacin HCl Allergy RASH Verified 08/03/18 08:47 [From Cipro] erythromycin base Allergy RASH Verified 08/03/18 08:47 fluconazole [From Diflucan] Allergy RASH Verified 08/03/18 08:47 peanut Allergy SWELLING Verified 08/03/18 08:47 Penicillins Allergy RASH Verified 08/03/18 08:47 sulfamethoxazole Allergy RASH Verified 08/03/18 08:47 [From Bactrim] trimethoprim [From Bactrim] Allergy RASH Verified 08/03/18 08:47 robitussin dm Allergy SHORTNESS Uncoded 05/25/17 12:40 OF BREATH seafood Allergy SHORTNESS Uncoded 05/25/17 12:40 OF BREATH Physical Exam - Constitutional Appears: Well, Non-toxic - Head Exam Head Exam: ATRAUMATIC - Extremities Exam Additional comments: Left lower extremity exam: vascular: Dp/pt pulses palpable 2/4, CFT <3 secx 5,TG warm to warm, no edema or erythema noted neuro: protective sensation intact via ipswich 12/21 derm: no edema noted at the ankle, no erythema noted, no open lesions, no clinical signs of infection ortho: pain on palpation to the course of TA tendon, pain on palpation to the lateral collateral ligaments. no pain with ROM - Neurological Exam Neurological exam: Alert, Oriented x3 - Psychiatric Exam Psychiatric exam: Normal Affect - Skin Skin Exam: Normal Color Results - Vital Signs Recent Vital Signs: Last Vital Signs Temp 98.2 F 08/03/18 09:43 Pulse 77 08/03/18 09:43 Resp 16 08/03/18 09:43 BP 130/70 08/03/18 09:43 Pulse Ox 98 08/03/18 09:43 Assessment & Plan - Assessment and Plan (Free Text) Assessment: 42 yo female with no pmhx seen at bedside for left ankle sprain Plan: Patient seen and evaluated history and plan discussed in detail with the attending, DR rabago x-rays reviewed; no acute osseous abnormality noted webbril and simeon along with an air cast applied Patient advised to remain NWB with the use of crutches Patient has use crtuches before and knows how to use them patient showed verbal understanding patient to take pain medications prn patient to follow up in dr dominique office. thank you for the consult
== END 2018-08-03 10:06 | disposition home or self-care (01) ==
LOC: H.ER 08:38
DX: S93.402A Sprain of unspecified ligament of left ankle, initial encounter (principal); X50.9XXA Other and unspecified overexertion or strenuous movements or postures, initial encounter; Y92.89 Other specified places as the place of occurrence of the external cause